=== PATIENT | male | born 1980 | race Caucasian/White ===

== ENCOUNTER 2018-03-26 11:50 | Emergency (ER) | payer OTHER, SELFPAY ==
[2018-03-26 11:57] VITALS: BP 140/70; PULSE 105; RESP 17; TEMP 37; O2SAT 98
--- NOTE | 2018-03-26 12:08 | ED.GENADUL ---
Disposition Clinical Impression: Inhalation injury Disposition: HOME Condition: Stable Instructions: Return to Work Instructions (ED) Additional Instructions: You were seen today for an inhalation injury related to exposure to ammonia. At this point in time, the exposure appears mild due to the brief exposure and reassuring exam today. The steroids you took today should continue to work for the next few days. [facility] with [facility] morning at 930am. Follow-up with your scheduled appointment with occupational medicine on 04/02/18 at 1 PM. Return to the emergency department at anytime for any worsening or new concerning symptoms. Forms: Work Release Medical Decision Making - Medical Decision Making 37-year-old male who presents from work at [employer] [facility] with burning in eyes and pain with deep breathing after inhaling ammonia just prior to arrival. Patient flushed his eyes with water at work. Patient is a smoker and has wheezing on exam. Oxygen saturation 98% on room air. His eyes are normal to inspection with pupils equal reactive, no injection, discharge, foreign body. ENT exam within normal limits. Will call poison control for recommendations. Patient offered oxygen and nebulizer treatment on arrival but declined. 1200 -- D/w poison control -states that expected reactions would be consistent with an inhalation injury including cough and bronchospasm. There is no specific period of time for observation and only when patient feels better can he be discharged and that generally once patient is removed from the source, his symptoms improve. Recommends nebs and steroids as indicated. In regards to eyes burning, poison control has no recommendation for fluorescein staining or any other intervention as just inhalation injury would not cause eye injury. Visual acuity checked and is 20/20 OD/OS/OU. 1300 -- patient feels much better. No wheezing noted on exam. Oxygen saturation 97% on room air. Patient admits to some headache. Patient was offered Tylenol but declined stating he will take this at home. Eyes again normal to inspection. Care management discussed with patient and was able to arrange for follow-up appointment with [facility] tomorrow morning at 9:30 AM and occupational medicine for 04/02/18 at 1pm. Patient was instructed to return to the ER with any concerns. Case was again discussed with poison control and that patient is feeling better and they have no other acute recommendations and agree with plan for discharge home. Patient requested a work note for today and to return tomorrow. History of Present Illness - General Chief complaint: RespSymp Stated complaint: EYES BURN/HARD TO BREATHE Time Seen by Provider: 03/26/18 11:53 Source: patient Mode of arrival: ambulatory Limitations: no limitations - History of Present Illness Initial comments: Patient is a 37-year-old male who presents with burning eyes and pain with deep breathing after inhaling region grade ammonia at work just prior to arrival. Patient works at [employer]. Patient states he opened a bottle of ammonia and inhaled for a quick second and felt his eyes burning and then had difficulty breathing. Patient denies any difficulty breathing at present and states he only has some pain with deep breath. Patient states he flushed his eyes at work. Patient is here with manager educational. He denies any vomiting. - Related Data BuPROPion [Wellbutrin] 100 mg PO DAILY 03/31/15 Citalopram [CeleXA] 20 mg PO DAILY tab-cap 03/31/15 Lisdexamfetamine [Vyvanse] 70 mg PO DAILY tab-cap 03/31/15 Atorvastatin Calcium 20 mg PO DAILY #90 tab-cap 08/27/17 Lisinopril [Prinivil] 20 mg PO DAILY #90 tab-cap 10/22/17 Cyclobenzaprine HCl 10 mg PO TID PRN #90 tab-cap 12/17/17 Buprenorphine HCl/Naloxone HCl [Buprenorphin-Naloxon 8-2 mg Sl] 2 each SL DAILY #56 tab 03/11/18 Allergies Allergy/AdvReac Type Severity Reaction Status Date / Time codeine Allergy Unknown Pruritis Unverified 02/06/18 08:12 or itching shellfish derived Allergy Unknown Unverified 02/06/18 08:12 Review of Systems Constitutional: denies: chills, fever Eyes: eye pain. denies: vision change ENT: denies: ear pain, dental pain Respiratory: denies: cough, shortness of breath Cardiovascular: denies: chest pain, dyspnea on exertion Gastrointestinal: denies: abdominal pain, nausea, vomiting Genitourinary: denies: urgency, dysuria, frequency Musculoskeletal: denies: back pain Skin: denies: rash, lesions Neurological: denies: headache, weakness Past Medical History - Past Medical History Medical history: hypertension Surgical history: non-contributory Family history: no significant family history - Social History Smoking status: current everyday smoker Alcohol use: occasionally Drug use: none General Exam - General Limitations: no limitations General appearance: alert, in no apparent distress - Eye Eye exam: Present: PERRL, EOMI. Absent: scleral icterus, conjunctival injection, periorbital swelling, periorbital tenderness - ENT ENT exam: Present: normal orophraynx, mucous membranes moist, TM's normal bilaterally - Neck Neck exam: Present: normal inspection - Respiratory Respiratory exam: Present: other (Scattered wheezing throughout.). Absent: respiratory distress - Cardiovascular Cardiovascular Exam: Present: regular rate, normal rhythm. Absent: bradycardia, tachycardia - GI/Abdominal GI/Abdominal exam: Present: soft, normal bowel sounds. Absent: distended, tenderness, guarding, rebound, rigid - Neurological Exam Neurological exam: Present: alert, oriented X3 - Psychiatric Psychiatric exam: Present: normal affect - Skin Skin exam: Present: warm, dry, intact Course Vital Signs - 24 hr 03/26/18 11:57 Temperature 98.6 F Pulse 105 H Respiratory 17 Rate Blood Pressure 140/70 Pulse Oximetry 98
[2018-03-26 12:11] VITALS: RESP 8
[2018-03-26] MEDS: Albuterol/Ipratropium 3 ML UPD VIAL UPD (12:11)
[2018-03-26] MEDS: Dexamethasone 10 MG/ML VIAL PO (12:13)
[2018-03-26 12:22] VITALS: RESP 4; RESP 8
--- NOTE | 2018-03-26 13:15 | PDOC.ERCMPRO ---
Care Management Progress Note 03/26-Dr. Nicholson requested assistance with a [facility] appt as well as occupational medicine. Patient seen for eye calle, ammonia. Dr. Nicholson has taken patient out of work for the rest of today. Called [facility] and spoke with Isabella. Isabella scheduled [facility] for 03/[address] Antony Trejo. Called Occupational Health and spoke with Darya. Darya scheduled [facility] for 04/02 at 1:[address] Nicholson aware of the two appts to be placed on d/c order and patient given appointment cards.
== END 2018-03-26 13:27 | disposition home or self-care (01) ==
PROVIDERS: Emergency Provider Physician Assistant; PCP Nurse Practitioner
DX: T59.891A Toxic effect of other specified gases, fumes and vapors, accidental (unintentional), initial encounter (principal); J68.2 Upper respiratory inflammation due to chemicals, gases, fumes and vapors, not elsewhere classified; H57.8 Other specified disorders of eye and adnexa; Y99.0 Civilian activity done for income or pay; I10 Essential (primary) hypertension; F17.210 Nicotine dependence, cigarettes, uncomplicated
CPT/HCPCS: 94640; 99283; J1100; J7620

== ENCOUNTER → 2018-04-14 16:03 | Outpatient (CLI) | payer OTHER, SELFPAY ==
--- NOTE | 2018-04-15 22:04 | ONE_ITS ---
DATE OF SERVICE: April 15, 2018 ASSESSMENT: Inhalation exposure to ammonia. Symptoms resolved. The exposure was brief, lasting only a few seconds. No further respiratory difficulty. No further eye burning beyond the first few days. PLAN: I am placing him at [facility] today. He is given an education sheet regarding ammonia and further references with regard to potential effects for further exposure. He is satisfied with this. Greater than 50% of this visit was spent in planning and coordination of care. 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 SUBJECTIVE: He comes in today for follow-up on an inhalation injury which actually took place on March 26. He explains that he was moving a barrel of lab-grade ammonia which had been submitted to his department for disposal. He had a 30- gallon barrel to which he was about to add more ammonia. As he raised the lid vapors escaped and he says it caught him by surprise, which caused him to gasp and inhale quickly. It burned his eyes and caused some dizziness and respiratory irritation initially. The [facility] Emergency Department evaluated him. He received an updraft and oral steroid. He was also evaluated the next day through [facility] for eye burning discomfort. His vision remained unchanged. He tells me eye soreness lasted about two days with the first 24 hours being worse. Chest discomfort also lasted about 24 hours. He has been back at work since then performing all of his usual job functions without difficulty. REVIEW OF SYSTEMS: Denies fevers. Denies abdominal pain, nausea, vomiting, or GI complaints. No wheezing. No dyspnea with exertion. No sore throat, runny nose, or earache. No further eye burning. No vision changes. No headache. PAST MEDICAL HISTORY: 1. Acute lumbar strain which has resolved. 2. Hypertension. 3. Hyperlipidemia. 4. GERD. 5. Carpal tunnel release on the left. 6. He is treated for addiction, stable on current dose of Suboxone. No alcohol for the last two years. CURRENT MEDICATIONS: 1. Lisinopril which he says he is out of and has not been able to refill so is not currently taking the daily 20 mg dose. 2. He discontinued the omeprazole 40 mg that he had been taking daily. 3. He likewise has not taken his atorvastatin. 4. He does continue with citalopram 20 mg a day. 5. Bupropion 10 mg a day. 6. Suboxone 8 mg. 7. Lisdexamfetamine 70 mg daily. ALLERGIES: 1. Codeine 2. Shellfish SOCIAL: He is a single father. HABITS: Smokes a pack and a half of cigarettes daily. No alcohol. OBJECTIVE: Vitals: Weight is 138/78. Pulse 80 and regular. Temperature 98.8. O2 saturation is 97%. Alert, cooperative, appropriate, and in no acute distress. Head is normal. Neck is supple, without lymphadenopathy. Throat/oropharynx are clear. TMs and canals are clear. PERRLA. EOMs intact. Conjunctivae are completely clear. Chest: Heart regular rate and rhythm. Lungs are clear to auscultation. There is no cyanosis or clubbing in his extremities. Abdomen is nontender.
== END ==
PROVIDERS: PCP Nurse Practitioner; Visit Provider Nurse Practitioner Family
DX: H57.8 Other specified disorders of eye and adnexa (principal); J68.2 Upper respiratory inflammation due to chemicals, gases, fumes and vapors, not elsewhere classified; T59.891D Toxic effect of other specified gases, fumes and vapors, accidental (unintentional), subsequent encounter; Y99.0 Civilian activity done for income or pay
CPT/HCPCS: 99214

== ENCOUNTER 2020-02-29 02:00 | Outpatient (CLI) | payer SELFPAY ==
[2020-02-29 07:58] LABS: HCT 46.7 % (40.0-50.0); HGB 15.6 g/dL (13.5-17.5); Mean Corp. HGB Concentration 33.4 g/dL (32.0-36.0); Mean Corpuscular Hemoglobin 30.2 pg (27.0-33.0); Mean Corpuscular Volume 90.5 fL (80-95); Mean Platelet Volume 11.6 fL (8.0-11.0); Platelet Count 271 x1000/uL (130-400); RBC 5.16 m/cumm (4.50-6.00); RBC Distribution Width 13.7 % (11.8-14.1); White Blood Cell Count 8.52 k/cumm (4.4-10.8)
[2020-02-29 08:16] LABS: Hemoglobin A1C 5.7 % (3.8-5.6)
[2020-02-29 08:41] LABS: ALT 55 U/L (16-63); AST 24 U/L (15-37); Albumin 3.9 g/dL (3.4-5.0); Alkaline Phosphatase 93 U/L (46-116); Anion Gap 6.9 mmol/L (3-11); BUN 10 mg/dL (7-18); Bilirubin, Total 0.3 mg/dL (0.2-1.0); CO2 29.1 mmol/L (21.0-32.0); CREATININE 0.89 mg/dL (0.70-1.30); Calcium 8.9 mg/dL (8.5-10.1); Calculated LDL 151 mg/dL (<100); Chloride 103 mmol/L (98-107); Cholesterol 223 mg/dL (<200); Glucose 110 mg/dL (74-106); HDL Cholesterol 28 mg/dL (40-60); Potassium 4.4 mmol/L (3.5-5.1); Sodium 139 mmol/L (136-145); Total Protein 7.2 g/dL (6.4-8.2); Triglyceride 223 mg/dL (<150)
== END 2020-02-29 02:20 ==
PROVIDERS: PCP Nurse Practitioner; Visit Provider Nurse Practitioner
DX: E78.5 Hyperlipidemia, unspecified (principal); R73.01 Impaired fasting glucose
CPT/HCPCS: 36415; 80053; 80061; 85027; 83036

== ENCOUNTER 2021-05-25 04:07 | Outpatient (CLI) | payer SELFPAY ==
[2021-05-25 08:37] LABS: HCT 47.2 % (40.0-50.0); HGB 15.4 g/dL (13.5-17.5); MCH 29.6 pg (27.0-33.0); MCHC 32.6 % (32.0-36.0); MCV 90.8 fL (80-95); MPV 11.9 fL (8.0-11.0); Platelet Count 242 10^3/uL (130-400); RDW 12.7 % (11.8-14.1); RDW-SD 41.9 fL
[2021-05-25 10:20] LABS: ALT 41 U/L (16-63); AST 17 U/L (15-37); Albumin 3.9 g/dL (3.4-5.0); Alkaline Phosphatase 83 U/L (46-116); Anion Gap 7.8 mmol/L (3-11); BUN 13 mg/dL (7-18); Bilirubin, Total 0.3 mg/dL (0.2-1.0); CO2 30.2 mmol/L (21.0-32.0); CREATININE 0.8 mg/dL (0.70-1.30); Calcium 8.9 mg/dL (8.5-10.1); Calculated LDL 130 mg/dL (<100); Chloride 102 mmol/L (98-107); Cholesterol 197 mg/dL (<200); Glucose 102 mg/dL (74-106); HDL Cholesterol 35 mg/dL (40-60); Potassium 4.6 mmol/L (3.5-5.1); Sodium 140 mmol/L (136-145); Total Protein 7.3 g/dL (6.4-8.2); Triglyceride 163 mg/dL (<150)
== END 2021-05-25 04:08 | disposition home or self-care (01) ==
LOC: LBO 04:07
PROVIDERS: PCP Nurse Practitioner; Visit Provider Nurse Practitioner
DX: I10 Essential (primary) hypertension (principal); E78.5 Hyperlipidemia, unspecified; R60.0 Localized edema; Z13.1 Encounter for screening for diabetes mellitus
CPT/HCPCS: 36415; 80053; 80061; 85027; 83036

== ENCOUNTER 2022-01-15 10:48 | Outpatient (REF) | payer SELFPAY ==
[2022-01-19 05:49] LABS: Benzoylecgonine 631 ng/mL (Cutoff: 50); Cocaine Negative ng/mL (Cutoff: 50); Cocaine Interpretation Positive.
== END 2022-01-15 10:49 | disposition home or self-care (01) ==
LOC: LBN 10:48
PROVIDERS: PCP Nurse Practitioner; Referring Provider Nurse Practitioner; Visit Provider Nurse Practitioner
DX: R89.2 Abnormal level of other drugs, medicaments and biological substances in specimens from other organs, systems and tissues (principal)
CPT/HCPCS: 80353

== ENCOUNTER 2022-08-31 12:45 | Outpatient (CLI) | payer SELFPAY ==
[2022-08-31 09:57] LABS: ALT 39 U/L (16-63); AST 23 U/L (15-37); Alkaline Phosphatase 90 U/L (46-116); Anion Gap 5.1 mmol/L (3-11); BUN 13 mg/dL (7-18); Bilirubin, Total 0.3 mg/dL (0.2-1.0); CO2 31.9 mmol/L (21.0-32.0); CREATININE 1.1 mg/dL (0.70-1.30); Calcium 8.9 mg/dL (8.5-10.1); Calculated LDL 136 mg/dL (<100); Chloride 101 mmol/L (98-107); Cholesterol 205 mg/dL (<200); Estimated GFR 87.03 (mL/min/1.73m2); Glucose 108 mg/dL (74-106); HDL Cholesterol 38 mg/dL (40-60); Potassium 4.4 mmol/L (3.5-5.1); Sodium 138 mmol/L (136-145); Total Protein 7.8 g/dL (6.4-8.2); Triglyceride 157 mg/dL (<150)
== END 2022-08-31 12:46 | disposition home or self-care (01) ==
LOC: LBO 12:48
PROVIDERS: PCP Nurse Practitioner; Visit Provider Nurse Practitioner
DX: E78.5 Hyperlipidemia, unspecified (principal); R73.03 Prediabetes
CPT/HCPCS: 36415; 80053; 80061

== ENCOUNTER 2024-11-23 09:29 | Outpatient (REF) | payer BC, SELFPAY ==
[2024-11-23 15:58] LABS: Abs Immature Grans 0.02 10^3/uL (0.0-0.06); Absolute Basophil Count 0.02 10^3/uL (0.0-0.2); Absolute Eosinophil Count 0.32 10^3/uL (0.0-0.7); Absolute Lymphocyte Count 1.95 10^3/uL (1.2-3.4); Absolute Monocyte Count 0.68 10^3/uL (0.1-0.8); Absolute Neutrophil Count 5.14 10^3/uL (1.2-6.7); Basophils % 0.2 %; Eosinophils % 3.9 %; HCT 48.9 % (40.0-50.0); HGB 16.4 g/dL (13.5-17.5); Immature Grans % 0.2 %; MCH 29.8 pg (27.0-33.0); MCHC 33.5 % (32.0-36.0); MCV 89 fL (80-95); Monocytes % 8.4 %; Neutrophils % 63.3 %; Platelet Count 194 10^3/uL (130-400); RBC 5.51 10^6/uL (4.36-5.78); RDW 12.9 % (11.8-14.1); RDW-SD 42.5 fL; WBC 8.13 10^3/uL (4.4-10.8)
[2024-11-23 16:42] LABS: ALT 35 U/L (16-63); AST 20 U/L (15-37); Albumin 4.1 g/dL (3.4-5.0); Alkaline Phosphatase 89 U/L (46-116); Anion Gap 7.2 mmol/L (3-11); BUN 14 mg/dL (7-18); Bilirubin, Total 0.3 mg/dL (0.2-1.0); CO2 30.8 mmol/L (21.0-32.0); Calcium 9.7 mg/dL (8.5-10.1); Calculated LDL 131 mg/dL (<100); Chloride 101 mmol/L (98-107); Cholesterol 220 mg/dL (<200); Estimated GFR 96.37 (mL/min/1.73m2); Glucose 109 mg/dL (74-106); HDL Cholesterol 54 mg/dL (>or=40); Potassium 4.6 mmol/L (3.5-5.1); Sodium 139 mmol/L (136-145); Total Protein 7.6 g/dL (6.4-8.2); Triglyceride 179 mg/dL (<150)
[2024-11-23 17:17] LABS: Hemoglobin A1C 5.8 % (<5.7)
== END 2024-11-23 09:30 | disposition home or self-care (01) ==
LOC: LBN 09:29
PROVIDERS: PCP Nurse Practitioner; Visit Provider Nurse Practitioner
DX: E78.5 Hyperlipidemia, unspecified (principal); I10 Essential (primary) hypertension; R73.03 Prediabetes; J45.909 Unspecified asthma, uncomplicated
CPT/HCPCS: 80053; 80061; 83036; 85025

== ENCOUNTER 2025-02-14 18:29 | Emergency (ER) | payer OTHER, BC, SELFPAY ==
[2025-02-14 18:36] VITALS: BP 194/110; PULSE 108; RESP 16; TEMP 36.3; O2SAT 98
--- NOTE | 2025-02-14 18:57 | ED.GENADUL_ITS ---
Discharge Plan Disposition Patient Disposition: Home Condition: Stable Discharge Details Clinical Impression: Cellulitis of multiple sites of upper extremity and shoulder Primary Care Provider: Chanelle Garcia ED Provider: Abimbola Perez Home Meds and New Rx's Prescriptions: New sulfamethoxazole-trimethoprim [Bactrim DS] 800-160 mg tablet 1 tab PO BID 10 Days Qty: 20 0RF mupirocin [Centany] 2 % ointment 1 applic topical BID 7 Days Qty: 15 0RF Rx Instructions: Please apply to the affected areas twice daily for the next 7 days Continued penicillin V potassium 500 mg tablet 500 mg PO QID Qty: 28 0RF lisdexamfetamine 70 mg capsule 70 mg PO DAILY MDD 70 mg Qty: 28 0RF lisdexamfetamine 70 mg capsule 70 mg PO DAILY MDD 70 Qty: 28 0RF lisdexamfetamine 70 mg capsule 70 mg PO DAILY MDD 70mg Qty: 28 0RF buprenorphine-naloxone 8-2 mg tablet, sublingual 3 tab SL DAILY MDD 24 mg Qty: 84 2RF cyclobenzaprine 10 mg tablet 10 mg PO TID PRN (Reason: muscle spasm) Qty: 90 1RF ibuprofen 800 mg tablet 800 mg PO TID PRN (Reason: pain) Qty: 270 6RF lisinopril 20 mg tablet 20 mg PO DAILY Qty: 90 3RF hydrochlorothiazide 25 mg tablet 25 mg PO DAILY Qty: 90 3RF simvastatin 40 mg tablet 40 mg PO DAILY Qty: 90 3RF Discharge Instructions Instructions: Cellulitis (Skin Infection), Adult ED Additional Instructions: Please keep the rash clean and dry. Apply the antibiotic ointment twice daily and keep covered while at work. Allow to air dry at least 2 hours a day. Please take the antibiotics with yogurt or a probiotic daily as directed. Follow up with primary care provider in 3-5 days. Return to ED sooner if any worsening spreading rash, fever, worsening swelling or concerns. Please take Tylenol or Ibuprofen with food every 4-6 hours as needed for pain and swelling. Referrals: Chanelle Garcia, SECURE SOFTWARE ASSESSOR [Primary Care Provider, Medicine] - 1 week Discharge Data Discharge Date/Time-TO BE ENTERED AT DEPARTURE: 02/14/25 19:18 HPI General Mode of arrival: ambulatory . Date/Time Provider Initiated Documentation: 02/14/25 18:40 . Limitations to Documentation: no limitations . Information obtained by: patient, RN notes reviewed and old records reviewed . HPI Narrative: 44-year-old male presents to the ER with a chief complaint of bilateral arm rash which he noticed became red yesterday. 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 He reports that he have these wounds there for at least a week or more now they are spreading and have mild drainage with surrounding erythema. He does take Suboxone denies any active drug use. He does have a history of opioid dependency. He also has a swollen left hand which he reports that he had a crush injury couple weeks ago. He has multiple broken skin noted around his nails bilaterally. Has not taken any medications for this. Denies any fever or chills or systemic symptoms. Related Data Home Medications ?Medication ?Instructions ?Recorded ?Confirmed penicillin V potassium 500 mg 500 mg PO QID #28 tabs 0 03/23/24 02/01/25 tablet cyclobenzaprine 10 mg tablet 10 mg PO TID PRN muscle s pasm #90 11/23/24 02/01/25 tabs hydrochlorothiazide 25 mg tablet 25 mg PO DAILY #90 ta bs 11/23/24 02/01/25 ibuprofen 800 mg tablet 800 mg PO TID PRN pain #270 tabs 11/23/24 02/01/25 lisinopril 20 mg tablet 20 mg PO DAILY #90 tabs 10/2602/01/25 simvastatin 40 mg tablet 40 mg PO DAILY #90 tabs 10/2602/01/25 buprenorphine 8 mg-naloxone 2 mg 3 tab sublingual CORONA Y #84 tabs 02/01/25 02/01/25 sublingual tablet lisdexamfetamine 70 mg capsule 70 mg PO DAILY #28 caps 02/01/25 02/01/25 lisdexamfetamine 70 mg capsule 70 mg PO DAILY #28 caps 02/01/25 02/01/25 lisdexamfetamine 70 mg capsule 70 mg PO DAILY #28 caps 02/01/25 02/01/25 mupirocin 2 % topical ointment 1 applic topical BID Ra sh 7 days 02/14/25 (Centany) #15 grams sulfamethoxazole 800 1 tab PO BID 10 days #20 tab s 02/14/25 mg-trimethoprim 160 mg tablet (Bactrim DS) Previous Rx's ?Medication ?Instructions ?Recorded penicillin V potassium 500 mg 500 mg PO QID #28 tabs 0 03/23/24 tablet cyclobenzaprine 10 mg tablet 10 mg PO TID PRN muscle s pasm #90 11/23/24 tabs hydrochlorothiazide 25 mg tablet 25 mg PO DAILY #90 ta bs 11/23/24 ibuprofen 800 mg tablet 800 mg PO TID PRN pain #270 tabs 11/23/24 lisinopril 20 mg tablet 20 mg PO DAILY #90 tabs 10/26 09/19 simvastatin 40 mg tablet 40 mg PO DAILY #90 tabs 10/26 09/19 buprenorphine 8 mg-naloxone 2 mg 3 tab sublingual CORONA Y #84 tabs 02/01/25 sublingual tablet lisdexamfetamine 70 mg capsule 70 mg PO DAILY #28 caps 02/01/25 lisdexamfetamine 70 mg capsule 70 mg PO DAILY #28 caps 02/01/25 lisdexamfetamine 70 mg capsule 70 mg PO DAILY #28 caps 02/01/25 mupirocin 2 % topical ointment 1 applic topical BID Ra sh 7 days 02/14/25 (Centany) #15 grams sulfamethoxazole 800 1 tab PO BID 10 days #20 tab s 02/14/25 mg-trimethoprim 160 mg tablet (Bactrim DS) Allergies Allergy/AdvReac Type Severity Reaction Status Date / Time codeine Allergy Unknown Pruritis Verified 02/01/25 08:36 or itching shellfish derived Allergy Unknown rash Verified 02/01/25 08:36 General Stated Complaint: RashLesion LALA: 4 Exam Const General: cooperative and disheveled Nutritional Appearance: obese Orientation: alert, awake and oriented x3 Resp Effort & Inspection: normal respiratory effort and able to speak in complete sentences Auscultation: clear to auscultation bilaterally Cardio Palpation: normal PMI Rate: tachycardic Heart Sounds: S1 normal and S2 normal Skin Lesions: lesion noted (Excoriations noted with surrounding erythema with central vesicular with ye) ulcer bilateral dorsal arm borders irregular Course Vital Signs Vital signs: Vital Signs Temperature 36.3 C L 02/14/25 18:36 Pulse 108 H 02/14/25 18:36 Respiratory Rate 16 02/14/25 18:36 Blood Pressure 194/110 H 02/14/25 18:36 Pulse Oximetry 98 02/14/25 18:36 Temperature 36.3 C L 02/14/25 18:36 Temperature Source Oral 02/14/25 18:36 Pulse 108 H 02/14/25 18:36 Respiratory Rate 16 02/14/25 18:36 Blood Pressure 194/110 H 02/14/25 18:36 Blood Pressure Position Sitting 02/14/25 18:36 Pulse Oximetry 98 02/14/25 18:36 Oxygen Delivery Method Room Air 02/14/25 18:36 Oxygen Flow Rate 0 02/14/25 18:36 Medical Decision Making 44-year-old male presents to the ER with a chief complaint of bilateral arm rash which he noticed became red yesterday. Patient works at a local trash recycling area. He reports that he have these wounds there for at least a week or more now they are spreading and have mild drainage with surrounding erythema. He does take Suboxone denies any active drug use. He does have a history of opioid dependency. He also has a swollen left hand which he reports that he had a crush injury couple weeks ago. He has multiple broken skin noted around his nails bilaterally. Has not taken any medications for this. Denies any fever or chills or systemic symptoms. Patient given Bactrim p.o. and [address] on 10 days of Bactrim instructed on wound care to wash with soap and water keep dry and covered on a daily basis. Will discuss strict return instructions. This text was generated using [employer] dictation system, please disregard any oddities of phrase or misspellings. Quality:SDOH Health Related Social Needs: Health related social needs house/econ circumstance lo sylvei/isolated PFS All Active Problems (Updated 02/14/25 @ 19:08 by Abimbola Perez NP) Cellulitis of multiple sites of upper extremity and shoulder (Acute) Obesity (Chronic) Pre-diabetes (Acute) Bilateral leg edema (Acute) Dental infection (Acute) Tobacco use disorder (Acute 07/12/16) Opioid dependence on agonist therapy (Acute) Buprenorphine Rx: initially [facility] 2009, then Dr Louie, then Dr. Darden ([facility]), MAT transitioned to [facility] 03/2015 stable on 16 mg/d; Counsellor: Krishna Carter [facility] Hyperlipidemia (Acute 10/04/16) PCEq 30% LDL baseline 162 GERD (gastroesophageal reflux disease) (Acute 03/25/15) Essential hypertension (Acute 07/14/15) Elevated fasting glucose (Acute 09/06/16) DDD (degenerative disc disease), lumbosacral (Acute 10/05/15) Chronic low back pain (Acute 07/14/15) since age 15: trauma by hockey stick; helped by [facility]; MRI 09/2015; Pain Clinic eval 02/27/17 Bilateral carpal tunnel syndrome (Acute 11/26/16) using braces from Dr Darden <2014; mod CTS per nerve conduction 01/28/17; s/p repair L CTS 03/06/17 Lucy ADHD (attention deficit hyperactivity disorder) (Acute 03/31/15) Shena Calvert [facility] q 2 mos Medical History (Updated 02/14/25 @ 19:08 by Abimbola Perez NP) Opioid dependence (03/31/15) Buprenorphine maintenance Surgical History (Updated 06/11/18 @ 14:36 by [employer] [facility]) Tonsillectomy and adenoidectomy age 10 Endoscopic Carpal Tunnel release (03/06/17) left Family History Mother No problems noted. Sister No problems noted. Brother No problems noted. Father Heart disease Myocardial infarction cabg Social History (Updated 11/23/24 @ 09:09 by Lana Milian LPN) Smoking/Tobacco Use Status: Current every day Tobacco Type: cigarettes Smoking packs per day: 1 Smoking cigarettes per day: 20.0 Tobacco: How many years used: 35 Quit status: not considering quitting Smoking risk assessment performed?: Yes Alcohol Intake: never Drug use: Daily Substance use type: marijuana Counseling given: Yes Counseling provided: other (Mat Director Of Business Applications) Details: sees Adopted: No Foster care: No Household members: children and other Details: Mother, aunt Number of Children: 3 Communication Needs: None current occupation: [employer] Current gender identity: male How often do you talk on the phone with friends or family?: three or more times per week How often do you get together with friends or relatives?: three or more times per week Panel score (0-1 are the most socially isolated patients): 1 What type of physical activity do you participate in: none Duration: other Details: very physical job Frequency: daily Seatbelt use: sometimes Drive intox or ride w/intox chassis driver: No Working smoke detector in home: Yes Fire extinguisher in home: Yes Carbon monox detector in home: Yes Do you feel safe at home: Yes Do you feel safe in your relationship?: Yes
[2025-02-14] MEDS: Sulfameth/Trimeth DS, 2 TABS/BTL 1 TAB PO (19:17)
[2025-02-14] MEDS: Sulfameth/Trimeth DS TAB 1 TAB PO (19:17)
== END 2025-02-14 19:18 | disposition home or self-care (01) ==
LOC: ER 19:27
PROVIDERS: Emergency Provider Registered Nurse Emergency; PCP Nurse Practitioner
DX: L03.114 Cellulitis of left upper limb (principal); L03.113 Cellulitis of right upper limb; F17.210 Nicotine dependence, cigarettes, uncomplicated
CPT/HCPCS: 99283

== ENCOUNTER 2025-05-26 19:25 | Outpatient (REF) | payer OTHER, BC, SELFPAY | END 2025-05-26 19:26 | disposition home or self-care (01) | LOC: LBN 19:25 | PROVIDERS: PCP Family Medicine; Visit Provider Nurse Practitioner Family | DX: L98.9 Disorder of the skin and subcutaneous tissue, unspecified (principal) | CPT/HCPCS: 87070; 87186; 87205 ==

== ENCOUNTER 2025-05-27 14:39 | Emergency (ER) | payer OTHER, BC, SELFPAY ==
[2025-05-27 14:43] VITALS: BP 179/80; PULSE 98; RESP 20; TEMP 36.7; O2SAT 97
--- NOTE | 2025-05-27 15:00 | DI.RAD_ITS ---
Exam(s) XR FINGER LT INDEX EXAM: XR FINGER LT INDEX CLINICAL HISTORY: Infection, eval osteo. TECHNIQUE: 2D digital imaging was performed. Three views. COMPARISON: None. FINDINGS: BONES: No acute fracture is present. Old fracture of the distal phalanx of the middle finger.no bony destructive lesion is seen. JOINTS: No dislocation present. Mild degenerative changes of of the interphalangeal joints. SOFT TISSUE: Diffuse swelling of the index finger. Metallic density in the soft tissues of the middle finger. IMPRESSION: Soft tissue swelling of the index finger. No radiographic evidence of osteomyelitis. Old fracture and metallic foreign body in the distal distal 3rd finger. DATA REPOSITORY: RADIATION DOSE DELIVERED:
--- NOTE | 2025-05-27 16:09 | ED.GENADUL_ITS ---
Discharge Plan Disposition Patient Disposition: Home Condition: Stable Discharge Details Clinical Impression: Felon of finger of left hand Primary Care Provider: Chandan Reveles ED Provider: Fantasma Thibodeaux Home Meds and New Rx's Prescriptions: New cephalexin 500 mg tablet 500 mg PO QID Qty: 39 0RF Continued lisdexamfetamine 70 mg capsule 70 mg PO DAILY MDD 70mg Qty: 28 0RF cyclobenzaprine 10 mg tablet 10 mg PO TID PRN (Reason: muscle spasm) Qty: 90 1RF ibuprofen 800 mg tablet 800 mg PO TID PRN (Reason: pain) Qty: 270 6RF lisinopril 20 mg tablet 20 mg PO DAILY Qty: 90 3RF simvastatin 40 mg tablet 40 mg PO DAILY Qty: 90 3RF buprenorphine-naloxone 8-2 mg tablet, sublingual 3 tab SL DAILY MDD 24 mg Qty: 84 2RF doxycycline hyclate 100 mg capsule 100 mg PO BID 10 Days Qty: 20 0RF Rx Instructions: Avoid sun exposure. Take with meal. Take 1 pill every 12 hours x 7 days mupirocin 2 % ointment 1 applic topical TID Qty: 15 0RF Rx Instructions: apply three x daily for 10 days Discontinued penicillin V potassium 500 mg tablet 500 mg PO QID Qty: 28 0RF lisdexamfetamine 70 mg capsule 70 mg PO DAILY MDD 70 mg Qty: 28 0RF lisdexamfetamine 70 mg capsule 70 mg PO DAILY MDD 70 Qty: 28 0RF hydrochlorothiazide 25 mg tablet 25 mg PO DAILY Qty: 90 3RF Discharge Instructions Instructions: Cellulitis (Skin Infection), Adult ED Additional Instructions: Take full course of doxycycline as prescribed. I am also starting you on Keflex, please take this full course as prescribed. Perform warm soaks twice a day over the next week. Please follow-up with your primary care physician. Return to the emergency department immediately for any worsening or new concerning symptoms. Stand Alone Forms: Work Release Referrals: Chandan Reveles DO [Primary Care Provider, Medicine] HPI General Mode of arrival: ambulatory . Date/Time Provider Initiated Documentation: 05/27/25 14:52 . Limitations to Documentation: no limitations . Information obtained by: patient . HPI Narrative: HISTORY OF PRESENT ILLNESS This is a male with a history of cellulitis presenting with a finger infection. The patient was seen at urgent care on 05/26/2025, where a culture was taken, and he was advised to seek further medical attention. He reports that the condition of his finger has improved slightly since yesterday, even after working all day. The inflammation was first noticed on 05/24/2025. He describes a small hole in his finger, which he attempted to drain due to a sensation of pressure. He observed what appeared to be a blood blister. While at work, his finger kept getting caught on various objects, leading him to remove a flap of skin. This action revealed more affected skin than he had anticipated. Despite the removal of the skin flap, the pressure sensation persists, and his finger remains swollen. He notes that pus is released when pressure is applied to the area. He has just started a course of antibiotics and has taken two doses so far. He reports no known allergies to antibiotics. He also mentions that his hand is swollen. The patient smokes cigarettes and is aware that smoking can increase the likelihood of infections and may restrict the effectiveness of antibiotics. He has expressed a desire to cut back on smoking as much as possible. Related Data Home Medications ?Medication ?Instructions ?Recorded ?Confirmed cyclobenzaprine 10 mg tablet 10 mg PO TID PRN muscle s pasm #90 11/23/24 05/27/25 tabs ibuprofen 800 mg tablet 800 mg PO TID PRN pain #270 tabs 11/23/24 05/27/25 lisinopril 20 mg tablet 20 mg PO DAILY #90 tabs 10/2605/27/25 simvastatin 40 mg tablet 40 mg PO DAILY #90 tabs 10/2605/27/25 lisdexamfetamine 70 mg capsule 70 mg PO DAILY #28 caps 02/01/25 05/27/25 buprenorphine 8 mg-naloxone 2 mg 3 tab sublingual CORONA Y #84 tabs 05/10/25 05/27/25 sublingual tablet doxycycline hyclate 100 mg capsule 100 mg PO BID 10 da ys #20 caps 05/26/25 05/27/25 mupirocin 2 % topical ointment 1 applic topical TID #1 5 grams 05/26/25 05/27/25 cephalexin 500 mg tablet 500 mg PO QID #39 tabs 05/27 Previous Rx's ?Medication ?Instructions ?Recorded cyclobenzaprine 10 mg tablet 10 mg PO TID PRN muscle s pasm #90 11/23/24 tabs ibuprofen 800 mg tablet 800 mg PO TID PRN pain #270 tabs 11/23/24 lisinopril 20 mg tablet 20 mg PO DAILY #90 tabs 10/26 09/19 simvastatin 40 mg tablet 40 mg PO DAILY #90 tabs 10/26 09/19 lisdexamfetamine 70 mg capsule 70 mg PO DAILY #28 caps 02/01/25 buprenorphine 8 mg-naloxone 2 mg 3 tab sublingual CORONA Y #84 tabs 05/10/25 sublingual tablet doxycycline hyclate 100 mg capsule 100 mg PO BID 10 da ys #20 caps 05/26/25 mupirocin 2 % topical ointment 1 applic topical TID #1 5 grams 05/26/25 cephalexin 500 mg tablet 500 mg PO QID #39 tabs 05/27 Allergies Allergy/AdvReac Type Severity Reaction Status Date / Time codeine Allergy Unknown Pruritis Verified 05/27/25 14:49 or itching shellfish derived Allergy Unknown rash Verified 05/27/25 14:49 General Stated Complaint: RashLesion LALA: 3 Review of Systems Constitutional Constitutional: Denies fever(s) Integumentary/Breasts Skin/Breast: Reports as per HPI Exam Extrem Left upper extremity: hand (Second digit with shallow ulceration over fingertip, no discharge) Details: swelling Location: of the dorsal hand and of the 2nd digit Other: Patient able to flex and extend second digit with minimal discomfort and good range of motion Course Vital Signs Vital signs: Vital Signs Temperature 36.7 C 05/27/25 14:43 Pulse 98 H 05/27/25 14:43 Respiratory Rate 20 05/27/25 14:43 Blood Pressure 179/80 H 05/27/25 14:43 Pulse Oximetry 97 05/27/25 14:43 Temperature 36.7 C 05/27/25 14:43 Pulse 98 H 05/27/25 14:43 Respiratory Rate 20 05/27/25 14:43 Blood Pressure 179/80 H 05/27/25 14:43 Blood Pressure Position Sitting 05/27/25 14:43 Pulse Oximetry 97 05/27/25 14:43 Oxygen Delivery Method Room Air 05/27/25 14:43 Oxygen Flow Rate 0 05/27/25 14:43 Medical Decision Making 45-year-old male here with left second digit infection, seen at urgent care yesterday and prescribed antibiotics, has taken 2 doses of doxycycline, wound culture from 05/26 urgent care visist growing MRSA, patient sent to ED for further evaluation. Patient here with what appears to be ruptured feljeff with ulcer distal left second digit. There is swelling of his digit and hand. No signs of flexor tenosynovitis. Patient notes inflammation improving since starting doxycycline. X-ray of the left index finger interpreted by radiology: Soft tissue swelling of the index finger. No radiographic evidence of osteomyelitis. Old fracture and metallic foreign body in the distal distal 3rd finger. Of note, patient is on lisinopril. Patient notes some improvement already on doxycycline. Plan to continue doxycycline and will also add Keflex given concern for polymicrobial infection. Patient advised to perform warm soaks twice a day. Usual and customary discharge instructions were reviewed. Patient understands importance of timely follow-up. Quality:SDOH Health Related Social Needs: Health related social needs food insecurity house/econ circumstance PFSH All Active Problems (Updated 05/27/25 @ 16:37 by Fantasma Thibodeaux MD) Felon of finger of left hand (Acute) Obesity (Chronic) Pre-diabetes (Acute) Bilateral leg edema (Acute) Dental infection (Acute) Tobacco use disorder (Acute 07/12/16) Opioid dependence on agonist therapy (Acute) Buprenorphine Rx: initially [facility] 2009, then Dr Louie, then Dr. Darden ([place]), MAT transitioned to [facility] 03/2015 stable on 16 mg/d; Counsellor: Krishna Carter [facility] team Hyperlipidemia (Acute 10/04/16) PCEq 30% LDL baseline 162 GERD (gastroesophageal reflux disease) (Acute 03/25/15) Essential hypertension (Acute 07/14/15) Elevated fasting glucose (Acute 09/06/16) DDD (degenerative disc disease), lumbosacral (Acute 10/05/15) Chronic low back pain (Acute 07/14/15) since age 15: trauma by hockey stick; helped by [facility]; MRI 09/2015; Pain Clinic eval 02/27/17 Bilateral carpal tunnel syndrome (Acute 11/26/16) using braces from Dr Darden <2014; mod CTS per nerve conduction 01/28/17; s/p repair L CTS 03/06/17 Lucy ADHD (attention deficit hyperactivity disorder) (Acute 03/31/15) Shena Calvert [facility] q 2 mos Medical History (Updated 05/27/25 @ 16:37 by Fantasma Thibodeaux MD) Opioid dependence (03/31/15) Buprenorphine maintenance Surgical History (Updated 06/11/18 @ 14:36 by [employer] [place]) Tonsillectomy and adenoidectomy age 10 Endoscopic Carpal Tunnel release (03/06/17) left Family History Mother No problems noted. Sister No problems noted. Brother No problems noted. 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) Details: sees [facility] Adopted: No Foster care: No Household members: children and other Details: Mother, aunt Number of Children: 3 Communication Needs: None current occupation: [employer] Current gender identity: male How often do you talk on the phone with friends or family?: three or more times per week How often do you get together with friends or relatives?: three or more times per week Panel score (0-1 are the most socially isolated patients): 1 What type of physical activity do you participate in: none Duration: other Details: very physical job Frequency: daily Seatbelt use: sometimes 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
[2025-05-27] MEDS: Cephalexin 500 MG CAP PO (16:28)
[2025-05-27 16:32] VITALS: BP 146/88; PULSE 83; TEMP 36.8; O2SAT 96
== END 2025-05-27 16:50 | disposition home or self-care (01) ==
PROVIDERS: Emergency Provider Student in an Organized Health Care Education/Training Program; PCP Family Medicine
DX: L03.012 Cellulitis of left finger (principal); Z72.0 Tobacco use; Z59.41 Food insecurity; Z59.89 Other problems related to housing and economic circumstances
CPT/HCPCS: 99283 ×2; 73140

== ENCOUNTER 2025-07-13 19:26 | Outpatient (REF) | payer BC, SELFPAY | END 2025-07-13 19:27 | disposition home or self-care (01) | LOC: LBN 19:26 | PROVIDERS: PCP Family Medicine; Visit Provider Nurse Practitioner Family | DX: L98.9 Disorder of the skin and subcutaneous tissue, unspecified (principal) | CPT/HCPCS: 87077; 87070; 87186; 87205 ==